=== PATIENT | male | born 2005 | race Caucasian/White ===

== ENCOUNTER 2025-02-27 21:47 | Emergency (ER) | payer BC, SELFPAY ==
--- OUTSIDE RECORDS SUMMARY | 2025-02-27 21:49 | XMS_ITS | Clinical Summary ---
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 Immunizations Immunization Administration Dates Next Due AMB INFLUENZA, IIV4 (AGE=>6M OS) MDV (Flu Clinic Only) 07/03/2018 AMB Influenza, IIV3 (Age >=3 years)(Flu Clinic Only) 06/20/2010 DTaP 12/13/2007,05/27/2004 [id number] (Pediarix) 2003,2003,0 2003 HIB PRP-OMP (PedvaxHIB) 05/27/2004,2003, HPV 9 (Gardasil 9) 07/25/2016,02/22/2016 Hepatitis A (Peds) 10/15/2018,07/25/2016 Inactivated Polio Vaccine 07/25/2016 Influenza A (H1N1), Inactivated 09/04/2009,07/10 Influenza, IIV3 (Age >=3 years) 06/21/20 08,10/05/2006,07/29/2004,06/29 Influenza, IIV4 07/15/2019, 8,07/01/2017,07/25 Influenza,CCIIV4 PRESERV FREE 07/15/2023 Influenza,LAIV4 Live Intrana vanessa (Flumist) 06/26/2009 MMR 12/13/2007,02/27/2004 Meningococcal Vaccine (Menactra) 02/22/2016 Pneumococcal conj 7-Valent (Prevnar 7) 1 2003,2003,2003,04/20 Tdap 02/22/2016 Varicella Vaccine 12/13/2007,02/27/2004 Family History Medical History Relation Name Comments Good Health Father Good Health Mother Relation Name Status Comments Father Mother Social History Tobacco Use Types Packs/Day Years Used Date Smoking Tobacco: Never Smokeless Tobacco: Never Tobacco Cessation:Counseling Given: Yes Alcohol Use Standard Drinks/Week Comments Never 0 (1 standard drink = 0.6 oz pur e alcohol) PHQ-2 Answer Date Recorded PHQ-2 TOTAL SCORE 0 08/13/2023 Social Connections Answer Date Recorded Frequency of Communication with Friends and Fami ly Not on file 08/24/2021 Financial Resource Strain Answer Date R ecorded Difficulty of Paying Living Expenses Not on file 08/24/2021 Difficulty of Paying Living Expenses Not on file 08/24/2021 Sex and Gender Information Value Date Recorded Sex Assigned at Not on file Legal 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 Gender Identity Not on file Sexual Orientation Not on file Obstetrics History Last Filed Vital Signs Vital Sign Reading Time Taken Comments Blood Pressure 135/68 08/13/2023 12:53 PM ACID PATROLLER Pulse 66 08/13/2023 12:53 PM ACID PATROLLER Temperature 36.5 C (97.7 F) 08/13/2023 12:53 PM ACID PATROLLER Respiratory Rate 13 06/10/2022 9:35 AM CDT Oxygen Saturation 96% 08/13/2023 12: 53 PM ACID PATROLLER Inhaled Oxygen Concentration - - Weight 62.5 kg (137 lb 12.8 oz) 023 12:53 PM ACID PATROLLER Height 175.3 cm (5' 9) 08/13/2023 12:5 3 PM ACID PATROLLER Body Mass Index 20.35 08/13/2023 12:53 PM ACID PATROLLER Plan of Treatment Health Maintenance Due Date Last Done Comments HIV for age 15-65 2018 Hepatitis C screening for age 18-79 2021 COVID-19 vaccine series (1 - 2024-25 season) 2024 BMI (ht and wt on same day) for age 18+ 08/13/2024 08/13/2023, 02/03/2023, 06/03/2022 Depression screening for age 12+ 08/13/2024 08/13/2023, 06/03/2022, 10/15/2018, Additional history exists Influenza Vaccine (#1) 2025 , 07/15/2019, 07/03/2018, Additional history exists Tetanus booster 02/21/2026 02/22/2016 Hepatitis B series for 19+ Completed 08/28, 2003, 2003 Pneumococcal series for age 6-49 Aged Out 06/29/2004, 2003, 2003, Additional history exists No longer eligible based on patient's age to complete this topic HPV series for age 9-26 Completed 07/25/2016, 02/21 Insurance [employer] Care Teams Economic Developer Relationship Specialty Start Date End Date Votel, Cameron Leggett MD [address] [place] [id number] PCP - General 06/17/06
[2025-02-27 21:50] VITALS: BP 137/75; PULSE 74; RESP 14; TEMP 36.8; O2SAT 100; BMI 19.4
--- NOTE | 2025-02-27 21:57 | CRLHL7_ITS ---
For Patients: As a result of the Century Cures Act, medical imaging exams and procedure reports are released immediately into your electronic medical record. You may view this report before your referring provider. If you have questions, please contact your health care provider. INDICATION: Testicular pain. TECHNIQUE: Scrotal ultrasound examination was performed. Grayscale and color Doppler images were obtained. Spectral analysis was performed. COMPARISON: None. FINDINGS: Right testis: Measures 4.7 x 2.7 x 2.8 cm. Normal echotexture. No suspicious masses. Normal flow on color Doppler imaging. Left testis: Measures 4.0 x 2.7 x 3.1 cm. Normal echotexture. No suspicious masses. Slightly increased asymmetric hypervascularity. Epididymis: Unremarkable. Other: Left-sided varicocele. No hydrocele. IMPRESSION: 1. Findings raise the possibility of a left-sided orchitis. 2. Left-sided varicocele. Dictated by Marko Daniel MD @ 02/27/2025 11:44:31 PM (Electronically Signed)
--- NOTE | 2025-02-27 22:05 | ED.MALEGU ---
HPI - Male Genitourinary General Time Seen by Provider: 22:05 Date Seen: 02/27/25 Chief complaint: Urogenital Problems, Male Stated complaint: L abd. pain Time Seen by Provider: 02/27/25 22:05 Source: patient and RN notes reviewed Mode of arrival: ambulatory Limitations: no limitations History of Present Illness HPI Narrative: Herber is a very pleasant 20-year-old male previously healthy who comes to the emergency room with concerns regarding left testicular pain. This was sudden in onset approximately 1700 hours and has gradually gotten worse and is associated with some swelling. He cannot recall any trauma and he was at rest when the pain started. He notes he just return from your. Did have a fever with a sore throat 3 days ago which has since resolved. Otherwise no fevers or chills dysuria hematuria. He presents with his significant other. Does agree that the pain radiates into his lower abdomen especially on the left. Related Data Home Medications ?Medication ?Instructions ?Recorded ?Confirmed No Known Home Medications 02/27/25 02/27/25 Allergies Allergy/AdvReac Type Severity Reaction Status Date / Time No Known Drug Allergies Allergy Verified 02/27/25 21:54 Review of Systems Status of ROS: Reports: 6 or more systems reviewed and unremarkable except as noted in History and below Const: Denies: fever or chills GI: Denies: abdominal pain, nausea or vomiting : Denies: painful urination, urinary frequency or blood in urine Exam Narrative: Exam Narrative: Patient is alert and oriented. No acute distress. No respiratory distress. Initial exam challenging as patient is in hallway due to high census. Note that nurses immediately called for ultrasound prior to patient being seen. Further exam after patient returns to his room from ultrasound: Patient is alert oriented nontoxic in appearance. Mentation and speech is normal. Neck is supple. Heart with regular rate and rhythm and lungs are clear. Abdomen is soft and nontender. Patient has some small mobile lymph nodes palpated in the right groin. No lymphadenopathy on the left. Cremasteric reflex present bilaterally. Tenderness noted over the epididymis and over the lower aspect of the left testicle. Scrotum is without erythema. Const: Vital Signs, click to edit/add: Vital Signs - 24 hr 02/27/25 21:50 Temperature 98.2 F Pulse Rate [Pulse Oximeter] 74 Respiratory Rate 14 Blood Pressure [Ri ght Upper Arm] 137/75 Pulse Oximetry 100 Documenting provider has reviewed patient's vital signs: yes Course Course ED Course: Differential diagnosis includes but is not limited to testicular torsion, UTI, hydrocele, STI. Will obtain urinalysis and as previously noted ultrasound is pending. Patient is fully vaccinated. Significant other who presents with him tonight also had similar illness 3 days ago and they are now both asymptomatic. This would go against mumps as a cause of any orchitis. Vital Signs Vital signs: Initial Vital Signs Temperature 98.2 F 02/27/25 21:50 Temperature Source Temporal Artery Scan 02/27/25 21:50 Pulse Rate 74 02/27/25 21:50 Respiratory Rate 14 02/27/25 21:50 Blood Pressure 137/75 02/27/25 21:50 Blood Pressure Mean 95 02/27/25 21:50 Pulse Oximetry 100 02/27/25 21:50 Vital Signs Temperature 98.2 F 02/27/25 21:50 Pulse Rate 74 02/27/25 21:50 Respiratory Rate 14 02/27/25 21:50 Blood Pressure 137/75 02/27/25 21:50 Pulse Oximetry 100 02/27/25 21:50 Temperature 98.2 F 02/27/25 21:50 Pulse Rate 74 02/27/25 21:50 Respiratory Rate 14 02/27/25 21:50 Blood Pressure 137/75 02/27/25 21:50 Pulse Oximetry 100 02/27/25 21:50 MDM - Male Genitourinary MDM Narrative Medical decision making narrative: 1. Orchitis-patient noted to have increased vascularity on the left. Urinalysis without evidence of UTI. GC chlamydia pending. Denies any anal intercourse or insertion of items into the urethra. Also noted is a varicose vein which I discussed with patient. Will treat with 500 mg IM Rocephin and doxycycline 100 mg p.o. b.i.d. times 10 days. Certainly this could be a viral a infection as patient recently had fever and sore throat. He is fully vaccinated. Has no evidence of lymphadenopathy at this time or recent months exposure. 2. Disposition-home at this time. Return for fever, worsening symptoms and as needed. Lab Data Attestation: I reviewed the patient's lab results. Labs: Lab Results 02/27/25 Range/Units 23:00 Urine Color Yellow (Yellow) Urine Appearance Clear (Clear) Urine pH 7.0 (5.0-8.5) Ur Specific [place] 1.010 (1.000-1.030) Urine Protein Negative (Negative) Urine Glucose (UA) Negative (Negative) Urine Ketones Negative (Negative) Urine Blood Negative (Negative) Urine Nitrite Negative (Negative) Urine Bilirubin Negative (Negative) Urine Urobilinogen 0.2 (0.2-1.0) Ur Leukocyte Esterase Negative (Negative) Urine RBC 0-2 (0-2) Urine WBC 0-2 (0-5) Ur Squamous Epith Cells Few (None-Few) Urine Bacteria None (None) Imaging Data scrotal ultrasound: Attestation: I have reviewed the pertinent imaging results. Radiologist's impression: Right testis: Measures 4.7 x 2.7 x 2.8 cm. Normal echotexture. No suspicious masses. Normal flow on color Doppler imaging. Left testis: Measures 4.0 x 2.7 x 3.1 cm. Normal echotexture. No suspicious masses. Slightly increased asymmetric hypervascularity. Epididymis: Unremarkable. Other: Left-sided varicocele. No hydrocele. IMPRESSION: 1. Findings raise the possibility of a left-sided orchitis. 2. Left-sided varicocele. Discharge Plan Discharge Clinical Impression: Orchitis Patient Disposition: Home, Self-Care Condition: Improved Additional Instructions: You received an injection of Rocephin tonight. I would like you to start on another antibiotic called doxycycline. You will take this twice a day for the next 10 days. This medication can make you very sensitive to the sun so wear sunscreen hat and try to avoid a lot of exposure. We will call you if any of your urine test become positive. If you are not improving recommend seeing your regular physician. If you have fever, vomiting, worsening symptoms please return to the [facility]. Prescriptions: No Action No Known Home Medications Follow Up/Referrals: Cameron Hammond MD [Primary Care Provider, Family Practice] Stand Alone Forms: TraceSecurity Info Instructions
[2025-02-27 23:16] LABS: Appearance Urine Clear (Clear)
[2025-02-28 00:15] VITALS: BP 130/63; PULSE 61; RESP 16; O2SAT 97
[2025-02-28] MEDS: cefTRIAXone 500 MG VIAL IM (00:16)
[2025-02-28] MEDS: LIDOCAINE 1% 5 ml (pf) 5 ML VIAL 1 ML IM (00:17)
[2025-02-28 00:41] LABS: Chlamydia DNA Amplified* NOT DETECTED (No Detected); GC DNA Amplified* NOT DETECTED (No Detected)
== END 2025-02-28 00:25 | disposition home or self-care (01) ==
PROVIDERS: Emergency Provider Family Medicine; PCP Family Medicine
DX: N45.2 Orchitis (principal)
CPT/HCPCS: 76870; 81001; 81003; 87491; 87591; 93976; 96372; 99284; J0696